=== PATIENT | male | born 1975 | race African-American/Black ===

== ENCOUNTER 2020-12-16 18:11 | Emergency (ER) | payer SELFPAY ==
[~2020-12-16] VITALS: Ht 167.6 cm; Wt 70.0 kg
[2020-12-16 19:47] LABS: BASOPHILS % 0.6 % (0.0-2.0); EOSINOPHILS % 0.4 % (0.0-5.0); HEMATOCRIT. 43.2 % (42.0-52.0); HEMOGLOBIN. 14.4 g/dL (14.0-18.0); LYMPHOCYTES % 27.9 % (20.0-50.0); MEAN CORPUSCULAR HEMOGLOBIN 29.3 pg (28.0-32.0); MEAN CORPUSCULAR VOLUME 88.3 fL (80.0-94.0); MEAN PLATELET VOLUME 6.9 fl (7.4-10.4); MONOCYTES % 6.6 % (2.0-8.0); NEUTROPHILS % 64.5 % (40.0-76.0); PLATELET 363 x1000/uL (130-400); RED CELL DISTRIBUTION WIDTH 14.4 % (11.6-14.6)
[2020-12-16 19:53] LABS: CHLORIDE 110 mEq/L (98-107)
[2020-12-16 20:22] LABS: CLARITY URINE CLEAR (CLEAR); COLOR URINE YELLOW (YELLOW); KETONES URINE NEGATIVE (NEGATIVE); LEUKOCYTE ESTERASE URINE NEGATIVE (NEGATIVE); NITRITE URINE NEGATIVE (NEGATIVE); OCCULT BLOOD URINE NEGATIVE (NEGATIVE); PH URINE 5.5 (4.5-8.0); PROTEIN URINE NEGATIVE (NEGATIVE); SPECIFIC GRAVITY URINE 1.013 (1.005-1.030); UROBILINOGEN URINE 0.2 E.U./dL (0.2-1.0)
[2020-12-16 20:28] LABS: ETHANOL BLOOD 406 mg/dL
[2020-12-16 20:55] LABS: *AMPHETAMINES SCREEN URINE NEGATIVE (NEGATIVE); *BARBITURATES SCREEN URINE NEGATIVE (NEGATIVE); *BENZODIAZEPINES SCREEN URINE NEGATIVE (NEGATIVE); *COCAINE SCREEN URINE NEGATIVE (NEGATIVE); CANNABINOID URINE SCREEN PRESUMTIVE POSITIVE (NEGATIVE); METHADONE URINE SCREEN NEGATIVE (NEGATIVE); OPIATES URINE SCREEN NEGATIVE (NEGATIVE)
[2020-12-16 20:56] LABS: PHENCYCLIDINE URINE SCREEN NEGATIVE (NEGATIVE)
[2020-12-16] MEDS ORDERED: LORAZEPAM 1MG TABLET PO ONE (21:45)
[2020-12-16] MEDS ORDERED: DIPHENHYDRAMINE 50MG/ML VIAL IM ONE (22:00)
[2020-12-16] MEDS ORDERED: LORAZEPAM 2MG/ML CPJ IM ONE (22:00)
[2020-12-17 07:50] VITALS: BP 122/87
== END 2020-12-17 08:04 | disposition home or self-care (01) ==
LOC: ER 18:11
DX: R45.851 Suicidal ideations (principal); F10.129 Alcohol abuse with intoxication, unspecified; Y90.8 Blood alcohol level of 240 mg/100 ml or more; F32.9 Major depressive disorder, single episode, unspecified; Z20.822 Contact with and (suspected) exposure to COVID-19
CPT/HCPCS: 36415; 70450; 80048; 80305; 80307; 80320; 80329; 81003; 85025; 87426; 93005; 96372; 99285; J1200; J2060; Z7610; G0480